=== PATIENT | male | born 1955 | race African-American/Black ===

== ENCOUNTER 2016-08-22 00:45 | Emergency (ER) | payer MEDICARE, MEDICAID ==
[2016-08-22 00:49] VITALS: BMI 25.2
[2016-08-22] MEDS ORDERED: SODIUM CHLORIDE 0.9% 10 ML FLUSH FLUSH PRN (00:52)
[2016-08-22] MEDS ORDERED: Albuterol/Ipratropium Neb 3 ML NEB NEB ONE (00:53)
--- NOTE | 2016-08-22 00:53 | EDPRACDOC ---
- General Information Stated Complaint: RESP FAILURE Time Seen by Provider: 08/22/16 00:51 Home Medications: Home Medications Carvedilol [Coreg] 12.5 mg PO BID 11/07/13 Nitroglycerin [Nitrostat] 0.4 mg SL [id number] PRN 07/07/14 Ferric Citrate [Auryxia] 420 mg PO .TID W/MEALS 03/14/16 Omeprazole 20 mg PO DAILY PRN 03/14/16 Oxycodone HCl/Acetaminophen [Percocet 5-325 mg Tablet] 1 each PO BID PRN Allergies/Adverse Reactions: Allergies Allergy/AdvReac Type Severity Reaction Status Date / Time No Known Allergies Allergy Verified 03/14/16 16:16 - History of Present Illness Onset: [employer] HPI: PT PRESENTS TODAY WITH SUDDEN ONSET OF SHOB. PT ARRIVES VIA EMS WHO STATES THAT PT WAS TRI-PODDING, NAKED ON HIS PORCH AT TIME OF ARRIVAL AND UNABLE TO GIVE ANY HISTORY. IT IS 30 DEGREES OUTSIDE. PT DIALYSIS PT THAT HAS NOT MISSED ANY APPOINTMENTS. Shortness of Breath: Severe Relevant History: Reports: Heart Failure (CHF) SOB Worsens with: Reports: Lying Flat SOB Improves with: Reports: Sitting up ED Past Medical History - History Reviewed Yes Nurses notes reviewed and agree except as marked - Patient Medical History Cardiac History: Reports: Hypertension (DIALYSIS T,T,S), Heart Attack, Cardiac Catheterization, Stress Test GI/ History: Reports: Renal Failure (dialysis T,T,S) Psychological History: Reports: Depression Surgical History: Reports: Cardiac Catheterization, Other (LEFT ARM AVF) - Social Medical History Smoking Status: Former smoker EDM Review of Systems - Review of Systems ROS Negative Except as Marked: Yes All systems reviewed and were negative except as marked ROS Unobtainable: Yes Review of systems cannot be obtained due to the patient's medical condition Constitutional: No Symptoms Reported Respiratory: Shortness of Breath Cardiovascular: No Symptoms Reported Gastrointestinal: No Symptoms Reported - Physical Exam Constitutional: Alert, Distress Oriented to: Unable to Test Last recorded Vital Signs: Oxygen Pulse Oxygen Saturation O2 Device Oxygen Flow Rate Fraction of Inspired Oxygen ( FIO2) - HEENT Head: Normal Neck: Normal, Denies Pain, Midline - Respiratory/Cardiovascular Respiratory: Accessory Muscle Use, Diminished, Retractions, Rhonchi, Tachypnea Cardiovascular: Tachycardia - GI Palpation: Normal Tenderness: Non tender - Musculoskeletal Back: Normal Extremities: Normal - Integumentary Skin: Cool (COULD BE ENVIRONMENTALLY RELATED) Lymphatics: Normal - Neurologic Cerebellar: Unable to Test Mood Description: Anxious, Appropriate ED SOB MDM - Re-evaluation Re-evaluation 1 Re-evaluation Time: 03:00 Re-evaluation: AFTER 1 HOUR OF BIPAP, PT FEELING MUCH BETTER AND IS ABLE SPEAK IN FULL SENTENCES. PT IS SUPPOSE TO BE AT DIALYSIS IN 2.5 HOURS. WILL DISCUSS CASE WITH DR. BARAHONA, BUT IT SEEMS THAT WE WILL BE ABLE TO DISCHARGE PT DIRECTLY TO DIALYSIS. - Results Result Diagrams: 08/22/16 01:15 08/22/16 01:15 - EKG EKG #1 EKG Time: 00:54 -: Yes EKG interpreted by me Rate: bpm: 100 [place]: Normal Rhythm: NSR Block: None Hypertrophy: None ST: Normal Comments: LEFT ANTERIOR FASICULAR BLOCK, PULMONARY DISEASE PATTERN - Departure Disposition: Home Condition: Improved Final Diagnosis: Renal failure Pulmonary edema Qualifiers: Chronicity: acute Qualified Code(s): J81.0 - Acute pulmonary edema Respiratory failure Qualifiers: Chronicity: acute Respiratory failure complication: hypercapnia Qualified Code( s): J96.02 - Acute respiratory failure with hypercapnia Instructions: Renal Failure Diet (GEN) Education/Counseling Given To: Patient Education/Counseling Given Regarding: Diagnosis, Treatment, Follow Up Referrals: Rodolfo Watkins PA [Primary Care Provider] - One Week Prescriptions: No Action Carvedilol [Coreg] 12.5 mg PO BID Nitroglycerin [Nitrostat] 0.4 mg SL Q5MX3 PRN PRN Reason: Chest Pain Or Discomfort Omeprazole 20 mg PO DAILY PRN PRN Reason: Pain Oxycodone HCl/Acetaminophen [Percocet 5-325 mg Tablet] 1 each PO BID PRN PRN Reason: Pain Ferric Citrate [Auryxia] 420 mg PO .TID W/MEALS
[2016-08-22 01:06] VITALS: TEMP 98
--- NOTE | 2016-08-22 01:32 | DIRPT ---
CLINICAL DATA: Chest pain and respiratory failure. Sudden onset of shortness of breath. EXAM: PORTABLE CHEST 1 VIEW COMPARISON: Most recent chest radiograph 05/15/2016 FINDINGS: Cardiomegaly is stable. Hazy perihilar opacities consistent with pulmonary edema. Extrapleural opacity in the right lower lung zone, likely loculated pleural effusion. Chronic loculated left pleural effusion is again seen, with increase in dependent left pleural fluid. No pneumothorax. IMPRESSION: 1. Pulmonary edema. Increase in bilateral pleural effusions, with right pleural effusion likely loculated. Findings consistent with CHF. 2. Chronic partially loculated left pleural effusion is again seen. Electronically Signed By: Danitza Escobar M.D. On: 08/22/2016 01:29
[2016-08-22 01:34] LABS: BLOOD UREA NITROGEN 64 MG/DL (9-20); CALC CORRECTED 9.9 MG/DL (8.4-10.2); CALCIUM 9.6 MG/DL (8.4-10.2); CALCULATED OSMOLALITY 294 MOs/Kg (270-290); CHLORIDE 98 mEq/L (98-107); GLUCOSE 117 MG/DL (70-99); SODIUM LEVEL 143 mEq/L (137-146); TOTAL PROTEIN 8.2 G/DL (6.3-8.2)
[2016-08-22 01:39] LABS: AUTOMATED BASOPHIL 1.6 % (0-2); AUTOMATED EOSINOPHIL 3.3 % (0-5); AUTOMATED LYMPH 21.4 % (17-44); AUTOMATED MONOCYTE 5.4 % (3-10); AUTOMATED NEUTROPHIL 68.3 % (45-76); MPV 7.8 fL (7.4-10.4)
[2016-08-22] MEDS ORDERED: NITROGLYCERINE 2 % OINTMENT PACK TOP ONE (01:39)
[2016-08-22] MEDS ORDERED: MORPHINE 4 MG/ML INJECTION IV ONE (01:39)
[2016-08-22 01:42] LABS: PARTIAL THROMB. TIME 23.1 SEC (22-35); PT-INR 1.2
[2016-08-22 01:55] LABS: ABG Draw Site Right Radial; ALLEN'S TEST PASS; BEb 8.4 (+/- 2); TCO2 36.6 MMOL/L (23-27)
[2016-08-22] MEDS: NITROGLYCERINE 0.4 MG TAB SL SCH ×3 (02:18→02:34)
[2016-08-22 05:53] VITALS: PULSE 78
[2016-08-22 07:31] VITALS: BP 154/83
== END 2016-08-22 07:25 | disposition other institution (70) ==
LOC: ED 00:45
DX: N19 Unspecified kidney failure (principal); J81.0 Acute pulmonary edema; J96.02 Acute respiratory failure with hypercapnia
CPT/HCPCS: 36415; 36600; 71010; 80053; 82803; 83605; 84484; 85025; 85610; 85730; 93005; 94640; 94660; 96374; 99285; A9270; J2270; J7620; J3490